=== PATIENT | female | born 1985 | race Caucasian/White ===

== ENCOUNTER 2020-11-01 08:05 | Observation (INO) | payer OTHER ==
[~2020-11-01] VITALS: Ht 182.9 cm; Wt 113.6 kg
[~2020-11-01 08:05] MED LIST: FLUO20CA19 PO; IBUP-1223 PO; LABE200T6 PO; OXYC1TAB14 PO; PREN1TAB52 PO
[2020-11-01] MEDS ORDERED: FENTANYL PF 100 MCG/2ML IVPush PRN (08:30)
[2020-11-01] MEDS ORDERED: CALCIUM CARBONATE 500 MG TAB.CHEW PO PRN (08:30)
[2020-11-01] MEDS ORDERED: METOCLOPRAMIDE 5 MG/ML, 2ML IVPush PRN (08:30)
[2020-11-01] MEDS ORDERED: LACTATED RINGERS 1,000 ML IV SCH (08:30)
[2020-11-01] MEDS ORDERED: MISOPROSTOL 25 MCG TABLET VG PRN (08:30)
[2020-11-01] MEDS ORDERED: SODIUM CITRATE/CITRIC ACID 30 ML UDC PO PRN (08:30)
[2020-11-01] MEDS ORDERED: TERBUTALINE 1 MG/ML, 1ML IVPush PRN (08:30)
[2020-11-01] MEDS ORDERED: D5%-LACTATED RINGERS 1,000 ML IV SCH (08:30)
[2020-11-01] MEDS ORDERED: TERBUTALINE 1 MG/ML, 1ML SQ PRN (08:30)
[2020-11-01] MEDS ORDERED: OXYTOCIN 30U/ 0.9% NaCL 500ML 500 ML IV PRN (08:30)
[2020-11-01] MEDS ORDERED: FENTANYL PF 100 MCG/2ML IV PRN (08:30)
[2020-11-01] MEDS ORDERED: OXYTOCIN 30U/ 0.9% NaCL 500ML 500 ML IV ONE (08:30)
[2020-11-01] MEDS ORDERED: ONDANSETRON 2MG/ML, 2ML IVPush PRN (08:30)
[2020-11-01] MEDS ORDERED: MISOPROSTOL 25 MCG TABLET ONE (08:33)
[2020-11-01] MEDS ORDERED: OXYTOCIN 30U/ 0.9% NaCL 500ML 500 ML ONE (08:33)
[2020-11-01] MEDS ORDERED: MISOPROSTOL 200 MCG TABLET ONE (08:35)
[2020-11-01 08:51] LABS: BASOPHILS % (AUTO) 0 % (0-1); EOSINOPHILS % (AUTO) 2 % (1-7); LYMPHOCYTES % (AUTO) 10 % (22-44); MD NO; MEAN CORPUSCULAR HEMOGLOBIN 30.5 pg (27.0-34.8); MEAN CORPUSCULAR HGB CONC 34.6 g/dL (32.4-35.8); MEAN PLATELET VOLUME 7.7 fL (7.4-10.4); MONOCYTES % (AUTO) 5 % (2-9); NEUTROPHILS % (AUTO) 84 % (42-75); PLATELET COUNT 164 x10^3/uL (130-400); RED BLOOD COUNT 4.06 x10^6/uL (3.82-5.3); RED CELL DISTRIBUTION WIDTH 14.6 % (9.6-15.2)
[2020-11-01] MEDS ORDERED: PLEASE ENTER HEIGHT AND WEIGHT MC SCH (09:00)
[2020-11-01] MEDS ORDERED: FLUOXETINE HCL 20 MG CAPSULE ONE (09:11)
[2020-11-01 09:21] VITALS: BP 133/74
[2020-11-01] MEDS ORDERED: FLUOXETINE HCL 20 MG CAPSULE PO SCH (09:30)
[2020-11-01] MEDS ORDERED: OXYcodone/APAP 5/325MG TABLET PO PRN (10:00)
[2020-11-01] MEDS ORDERED: CARBOPROST TROMETHAMINE 250 MCG/ML, 1ML IM PRN (10:00)
[2020-11-01] MEDS ORDERED: MISOPROSTOL 200 MCG TABLET PR PRN (10:00)
[2020-11-01] MEDS ORDERED: ACETAMINOPHEN 325 MG TABLET PO PRN ×2 (10:00)
[2020-11-01] MEDS ORDERED: OXYcodone/APAP 10/325MG TABLET PO PRN (10:00)
[2020-11-01] MEDS ORDERED: METHYLERGONOVINE 0.2 MG/ML IM PRN (10:00)
[2020-11-01] MEDS ORDERED: MISOPROSTOL 200 MCG TABLET VG SCH (10:00)
[2020-11-01] MEDS ORDERED: MISOPROSTOL 100 MCG TABLET PO SCH (11:00)
[2020-11-01] MEDS ORDERED: FENTANYL PF 100 MCG/2ML ONE (11:50)
[2020-11-01 14:10] LABS: FREE T4 (FREE THYROXINE) 0.96 ng/dL (0.76-1.46)
== END 2020-11-01 15:20 | disposition home or self-care (01) ==
LOC: LDIP 08:05 → INTOOBSV 08:05
PROVIDERS: ADMIT Obstetrics & Gynecology; ATTEND Obstetrics & Gynecology
DX: O02.1 Missed abortion (principal); Z20.822 Contact with and (suspected) exposure to COVID-19; O10.912 Unspecified pre-existing hypertension complicating pregnancy, second trimester; Z3A.20 20 weeks gestation of pregnancy; Z79.82 Long term (current) use of aspirin; Z79.899 Other long term (current) drug therapy
CPT/HCPCS: 36415; 59200; 80074; 83036; 84439; 84443; 85025; 85300; 85301; 85598; 85610; 85613; 85670; 85730; 86146; 86147; 86592; 86645; 86695; 86696; 86747; 86778; 86850; 86900; 87635; 88300; 88305; 96361; 96365; 96375; G0378; J2590; J3010; J7120; 85732; 86644; 86694; 86762; 86777